=== PATIENT | male | born 1965 | race African-American/Black ===

== ENCOUNTER → 2019-04-02 | Outpatient (CLI) | payer OTHER ==
[~2019-04-02] MED LIST: AUGMENTIN 875-1 EACH PO; IBUPROFEN 800800 MG PO; NORCO 5-325 TA1 EACH PO; NORFLEX100 MG PO; SENNA-S TABLET1 EACH PO
== END ==
LOC: RAD 16:14
DX: R05 Cough (principal); M54.5 Low back pain

== ENCOUNTER → 2019-06-24 | Outpatient (CLI) | payer OTHER | LOC: CAT 09:07 | DX: J43.9 Emphysema, unspecified (principal); I70.0 Atherosclerosis of aorta; M47.816 Spondylosis without myelopathy or radiculopathy, lumbar region; M19.90 Unspecified osteoarthritis, unspecified site; R91.8 Other nonspecific abnormal finding of lung field; J98.4 Other disorders of lung; M46.00 Spinal enthesopathy, site unspecified; F17.201 Nicotine dependence, unspecified, in remission ==

== ENCOUNTER 2019-12-19 09:55 | Emergency (ER) | payer OTHER ==
[~2019-12-19] VITALS: Ht 172.7 cm; Wt 74.8 kg
[2019-12-19] MEDS ORDERED: TAMIFLU75 MG PO (12:09)
[2019-12-19 12:17] VITALS: BP 120/74
== END 2019-12-19 12:18 | disposition home or self-care (01) ==
LOC: ER 09:55
DX: J10.1 Influenza due to other identified influenza virus with other respiratory manifestations (principal); M79.89 Other specified soft tissue disorders; F17.210 Nicotine dependence, cigarettes, uncomplicated; Z79.899 Other long term (current) drug therapy

== ENCOUNTER → 2020-03-01 | Outpatient (CLI) | payer OTHER ==
[~2020-03-01] MED LIST changes: +TAMIFLU75 MG PO
== END ==
LOC: RAD 11:10
DX: R06.02 Shortness of breath (principal)

== ENCOUNTER 2021-03-03 16:50 | Emergency (ER) | payer OTHER ==
[~2021-03-03] VITALS: Ht 172.7 cm; Wt 90.7 kg
[2021-03-03 17:43] LABS: URINE BILIRUBIN NEGATIVE (Negative); URINE BLOOD NEGATIVE (Negative); URINE CLARITY CLEAR; URINE COLOR YELLOW; URINE GLUCOSE-RANDOM* NEGATIVE (Negative); URINE KETONES NEGATIVE (Negative); URINE LEUKOCYTES-REFLEX NEGATIVE (Negative); URINE NITRITE-REFLEX NEGATIVE (Negative); URINE PROTEIN (DIPSTICK) NEGATIVE (Negative); URINE SPECIFIC GRAVITY 1.025 (1.005-1.035)
[2021-03-03 17:45] LABS: HEMATOCRIT 42.3 % (42.0-52.0); HEMOGLOBIN 14.2 gm/dL (14.0-18.0); MCHC 33.5 g/dL (28.0-37.0); MCV 92.5 fL (80.0-100.0); RBC 4.57 mil/uL (4.50-6.00); RDW 12.6 % (10.5-14.5); WBC 6.1 thou/uL (4.0-11.0)
[2021-03-03 17:51] LABS: CALCIUM 8.8 mg/dL (8.5-10.1); CREATININE 0.9 mg/dL (0.7-1.3); POTASSIUM 3.6 mmol/L (3.5-5.1)
[2021-03-03 17:57] LABS: ALBUMIN 3.8 g/dL (3.4-5.0); TOTAL BILIRUBIN 0.6 mg/dL (0.2-1.0); TOTAL PROTEIN 8.2 g/dL (6.4-8.2)
[2021-03-03 19:19] VITALS: BP 134/78
== END 2021-03-03 19:19 | disposition home or self-care (01) ==
LOC: ER 16:50
PROVIDERS: Nurse Practitioner Family
DX: R51.9 Headache, unspecified (principal); I10 Essential (primary) hypertension; F17.210 Nicotine dependence, cigarettes, uncomplicated